=== PATIENT | female | born 1960 | race Caucasian/White ===

== ENCOUNTER 2020-10-10 06:00 | Day surgery (SDC) | payer OTHER, SELFPAY ==
[~2020-10-10] VITALS: Ht 157.5 cm; Wt 98.1 kg
[~2020-10-10 06:00] MED LIST: CALCIUM PO; COQ1050 MG; Loratadine10 MG PO; MAGCIT300 PO; MINERAL ICE; OMEP20ER PO; RIZATRIPTAN10 MG SL; TRIDERM28.4 GM TOP; Vitamin B Comple1 EA; [UNRECOGNIZED DRUG - OTHER]; [UNRECOGNIZED DRUG - OTHER]
[2020-10-10] MEDS ORDERED: BUPR100 PO (06:29)
[2020-10-10] MEDS ORDERED: COTEMPLA XR-O17.3 MG PO (06:30)
--- NOTE | 2020-10-10 06:45 | NUR ---
Patient up to Ambulate independently. Gait steady. History, Chart, Medications and Allergies reviewed before start of procedure. Lungs clear T/O to Auscultation. Patient confirms NPO status and agrees with scheduled surgery. Pre-Op teaching done. Pt verbalizes understanding. Patient States Post-Procedure ride home has been arranged.
--- NOTE | 2020-10-10 09:41 | NUR ---
Discharge instructions reviewed with patient. Patient verbalizes understanding. Copy given to patient to take home. Patient up to Ambulate independently. Gait steady. Patient States Post-Procedure ride home has been arranged. Discharged via wheelchair to private car for ride home. SCANT BLEEDING NOTED ON BUSTER PAD PT INSTRUCTED IF BLEEDING GETS HEAVY AND WHEN TO CALL
== END 2020-10-10 22:48 | disposition home or self-care (01) ==
LOC: ORSCMMR 06:00 → ORD 09:30 → ORSCMMR 14:12 → ORD 10-15 12:30
PROVIDERS: Obstetrics & Gynecology
PROC: 0UDB8ZX Extraction of Endometrium, Via Natural or Artificial Opening Endoscopic, Diagnostic (ICD-10-PCS; principal; 2020-10-10 07:30)
DX: N95.0 Postmenopausal bleeding (principal); R93.89 Abnormal findings on diagnostic imaging of other specified body structures; G47.33 Obstructive sleep apnea (adult) (pediatric); Z79.899 Other long term (current) drug therapy; E66.01 Morbid (severe) obesity due to excess calories; Z68.39 Body mass index [BMI] 39.0-39.9, adult
CPT/HCPCS: 88305; A9270; J1885; J2250; J2405; J3010; J7120